=== PATIENT | female | born 1950 | race Caucasian/White ===

== ENCOUNTER 2017-03-10 14:05 | Emergency (ER) | payer MEDICARE | END 2017-03-10 14:46 | disposition left against medical advice (07) | LOC: ER 14:05 | DX: Z53.20 Procedure and treatment not carried out because of patient's decision for unspecified reasons (principal) ==

== ENCOUNTER 2017-07-10 17:39 | Emergency (ER) | payer MEDICARE ==
[2017-07-10 18:23] LABS: INFLUENZA A NEGATIVE (NEGATIVE); INFLUENZA B NEGATIVE (NEGATIVE)
[2017-07-10] MEDS ORDERED: ACETAMINOPHEN 500 MG TABLET PO ONE (19:01)
--- NOTE | 2017-07-10 19:05 | Emergency Department Record ---
History of Present Illness - General Chief Complaint: Cough Stated Complaint: COUGH Time Seen by Provider: 07/10/17 18:51 Source: Patient Mode of Arrival: Ambulatory Limitations: No limitations - History of Present Illness Initial Comments: pt has been sick for 4 days w prod yellow cough, fevers, chills and sweats, nausea ,vomiting and diarrhea MD Complaint: Cough, Fever, Nasal congestion, Rhinorrhea, Sore throat Onset/Timin -: Days(s) Severity: Mild Improves With: Nothing Worsens With: Nothing Associated Symptoms: Chills, Cough, Fever, Hoarseness, Nasal congestion, Nausea , Rhinorrhea, Night sweats, Sore throat, Vomiting Treatments Prior to Arrival: None - Related Data Previous Rx's Medication Instructions Recorded Azithromycin [Zithromax] 250 mg PO DAILY #4 tab 07/10/17 Allergies Allergy/AdvReac Type Severity Reaction Status Date / Time morphine Allergy DIFFICULTY Verified 07/10/17 17:56 BREATHING Travel Screening - Travel/Exposure Within Last 30 Days Have you traveled within the last 30 days?: No Review of Systems Reviewed: No additional complaints except as noted below Constitutional: Reports: As per HPI. Denies: Chills, Fever, Malaise, Night sweats, Weakness, Weight change Eyes: Reports: As per HPI. Denies: Eye discharge, Eye pain, Photophobia, Vision change ENT: Reports: As per HPI. Denies: Congestion, Dental pain, Ear pain, Epistaxis , Hearing loss, Throat pain Respiratory: Reports: As per HPI. Denies: Cough, Dyspnea, Hemoptysis, Stridor, Wheezes Cardiovascular: Reports: As per HPI. Denies: Arrhythmia, Chest pain, Dyspnea on exertion, Edema, Murmurs, Orthopnea, Palpitations, Paroxysmal nocturnal dyspnea, Rheumatic Fever, Syncope Endocrine: Reports: As per HPI. Denies: Fatigue, Heat or cold intolerance, Polydipsia, Polyuria Gastrointestinal: Reports: As per HPI. Denies: Abdominal pain, Constipation, Diarrhea, Hematemesis, Hematochezia, Melena, Nausea, Vomiting Genitourinary: Reports: As per HPI. Denies: Abnormal menses, Discharge, Dyspareunia, Dysuria, Frequency, Hematuria, Incontinence, Retention, Urgency Musculoskeletal: Reports: As per HPI. Denies: Arthralgia, Back pain, Gout, Joint swelling, Myalgia, Neck pain Skin: Reports: As per HPI. Denies: Bruising, Change in color, Change in hair/ nails, Lesions, Pruritus, Rash Neurological: Reports: As per HPI. Denies: Abnormal gait, Confusion, Headache, Numbness, Paresthesias, Seizure, Tingling, Tremors, Vertigo, Weakness Psychiatric: Reports: As per HPI. Denies: Anxiety, Auditory hallucinations, Depression, Homicidal thoughts, Suicidal thoughts, Visual hallucinations Hematological/Lymphatic: Reports: As per HPI. Denies: Anemia, Blood Clots, Easy bleeding, Easy bruising, Swollen glands Past Medical History - SOCIAL HISTORY Smoking Status: Current every day smoker Alcohol Use: None Drug Use: None - RESPIRATORY Hx Respiratory Disorders: Yes Hx COPD: Yes - CARDIOVASCULAR Hx Cardio Disorders: Yes Hx Cardiac Cath: Yes Comment:: bradycardia, needs pacemaker - NEURO Hx Neuro Disorders: Yes Hx Headaches: Yes Hx of Migraines: Yes (last one 09/2015) - GI Hx GI Disorders: Yes Hx Abdominal Pain: Yes Hx Diverticulitis: Yes Hx Reflux: Yes Hx Hiatal Hernia: Yes Hx Nausea/Vomiting: Yes Hx of Polyps: Yes Comment:: c/o constipation - Hx Genitourinary Disorders: No Hx Kidney Stones: Yes - ENDOCRINE Hx Endocrine Disorders: Yes Hx Thyroid Disease: Yes - MUSCULOSKELETAL Hx Musculoskeletal Disorders: Yes Hx Arthritis: Yes Hx Back Injury: Yes - PSYCH Hx Psych Problems: No - HEMATOLOGY/ONCOLOGY Hx Hematology/Oncology Disorders: Yes Hx Blood Transfusions: Yes Hx Blood Transfusion Reaction: No Family Medical History Any Significant Family History?: Yes Hx Diabetes: Grandparents Hx Heart Disease: Father, Mother, Brother/Sister Hx HTN: Mother, Brother/Sister Hx Seizures: Brother/Sister Physical Exam - General General Appearance: Alert, Oriented x3, Cooperative, Mild distress - Head Head exam: Normal inspection - Eye Eye exam: Normal appearance, PERRL, Conjunctival injection, EOMI Pupils: Normal accommodation - ENT ENT exam: Normal exam, Mucous membranes moist, Normal external ear exam, Normal orophraynx, TM's normal bilaterally Ear exam: Normal external inspection. negative: External canal tenderness Nasal Exam: Normal inspection. negative: Discharge, Sinus tenderness Mouth exam: Normal external inspection, Tongue normal Teeth exam: Normal inspection. negative: Dental caries Throat exam: Normal inspection. negative: Tonsillar erythema, Tonsillar exudate - Neck Neck exam: Normal inspection, Full ROM. negative: Tenderness - Respiratory Respiratory exam: Normal lung sounds bilaterally. negative: Respiratory distress - Cardiovascular Cardiovascular Exam: Regular rate, Normal rhythm, Normal heart sounds - GI/Abdominal GI/Abdominal exam: Soft, Normal bowel sounds. negative: Tenderness - Rectal Rectal exam: Deferred - exam: Deferred - Extremities Extremities exam: Normal inspection, Full ROM, Normal capillary refill. negative: Tenderness - Back Back exam: Reports: Normal inspection, Full ROM. Denies: Muscle spasm, Rash noted, Tenderness - Neurological Neurological exam: Alert, CN II-XII intact, Normal gait, Oriented X3 - Psychiatric Psychiatric exam: Normal affect, Normal mood - Skin Skin exam: Dry, Intact, Normal color, Warm Course Vital Signs 07/10/17 17:53 Temperature 98.6 F Pulse Rate 68 Respiratory 20 Rate Blood Pressure 141/91 Pulse Ox 96 Medical Decision Making - Lab Data Result diagrams: 07/10/17 19:07 07/10/17 19:07 Lab Results 07/10/17 07/10/17 Range/Units 18:00 18:00 Influenza Type A Ag Negative (NEGATIVE) Influenza Type B Ag Negative (NEGATIVE) Group A Strep Screen Negative (NEGATIVE) Disposition Disposition: Discharge Clinical Impression: Bronchitis Disposition: Home, Self-Care Condition: (1) Good Instructions: Acute Bronchitis (ED) Additional Instructions: follow up with family doctor. return sooner if worse. push fluids. tylenol or motrin as needed. nyquil at night to help . Prescriptions: Azithromycin [Zithromax] 250 mg PO DAILY #4 tab Forms: Patient Portal Access Quality - Quality Measures Quality Measures: N/A - Blood Pressure Screening Does Patient Have Any of the Following: No Blood Pressure Classification: Hypertensive Reading Systolic Measurement: 141 Diastolic Measurement: 91 Screening for High Blood Pressure: < Pre-Hypertensive BP, F/U Documented > [ G8950] Pre-Hypertensive Follow-up Interventions: Follow-up with rescreen every year.
[2017-07-10 19:13] LABS: BASO % 0.2 % (0-6); EOS % 0.4 % (0-6); GRAN % 70.4 % (47-80); HEMATOCRIT 39.6 % (35.0-47.0); HEMOGLOBIN 12.9 gm/dl (11.6-16.0); LYMPH % 20.3 % (16-45); MEAN CELL VOLUME 96.4 fl (81-97); MEAN CORPUSCULAR HEMOGLOBIN 31.4 pg (27-33); MEAN CORPUSCULAR HGB CONC 32.6 g/dl (32-36); MEAN PLATELET VOLUME 9.7 fl (7.4-10.4); MONO % 8.7 % (0-9); PLATELET COUNT 217 K/uL (130-400); RED BLOOD COUNT 4.11 M/uL (3.80-5.40); RED CELL DISTRIBUTION WIDTH 13.4 % (11.5-14.5); WHITE BLOOD COUNT W/O DIFF 4.6 K/uL (4.2-12.2)
[2017-07-10 19:28] LABS: BLOOD UREA NITROGEN 15 mg/dL (8-23); CREATININE 0.7 mg/dL (0.5-0.9); EST GLOMERULAR FILTRATION RATE > 60 mL/min
[2017-07-10 19:30] LABS: GLUCOSE,RANDOM 101 mg/dL (74-109)
[2017-07-10] MEDS ORDERED: AZITHROMYCIN 500 MG TABLET PO ONE (20:19)
--- NOTE | 2017-07-11 08:45 | RADIOLOGY REPORT ---
EXAM: CHEST 2 VIEWS HISTORY: COUGH AND FEVER. TECHNIQUE: Chest, two-view. COMPARISON: 02/01/15 FINDINGS: The heart is not enlarged. Lungs and pleural spaces are clear. IMPRESSION: NO ACUTE CARDIOPULMONARY ABNORMALITY. JOB NUMBER: [id number] MTDD
== END 2017-07-10 20:34 | disposition home or self-care (01) ==
LOC: ER 17:39
DX: J20.9 Acute bronchitis, unspecified (principal); R11.2 Nausea with vomiting, unspecified; R19.7 Diarrhea, unspecified; F17.210 Nicotine dependence, cigarettes, uncomplicated
CPT/HCPCS: 71020; 80048; 85025; 87400; 87880; 99283; 99284

== ENCOUNTER 2017-07-25 19:51 | Emergency (ER) | payer MEDICARE ==
--- NOTE | 2017-07-25 20:13 | Emergency Department Record ---
History of Present Illness - General Chief Complaint: Chest Pain Stated Complaint: CHEST PAIN/JULIO C Time Seen by Provider: 07/25/17 20:07 Source: Patient Mode of Arrival: Ambulatory Limitations: No limitations - History of Present Illness Initial Comments: 66 yo female presents to ED for evaluation of left-sided chest pain symptoms that began last night, radiating into her neck with any swallowing of movement of the neck on examination. Patient reports undergoing pacemaker placement 2 days ago, denies fevers, chills, or cough symptoms. Patient reports pacemaker was placed for intermittent bradycardia. MD Complaint: Chest pain Onset/Timin -: Days(s) Onset: During rest Pain Location: Substernal Pain Radiation: RUE, Jaw/teeth Severity scale (1-10): 10 Quality: Heaviness Consistency: Intermittent Improves With: Nothing Worsens With: Movement Context: Recent surgery Anginal Symptoms: Diaphoresis, Nausea - Related Data On Oral Contraceptives: No Home Medications Medication Instructions Recorded Confirmed Last Taken Estrogens, Conjugated [Premarin] 0.625 mg PO DAILY 07/25/17 07/25/17 Unknown Allergies Allergy/AdvReac Type Severity Reaction Status Date / Time morphine Allergy DIFFICULTY Verified 07/10/17 17:56 BREATHING Travel Screening - Travel/Exposure Within Last 30 Days Have you traveled within the last 30 days?: No - Travel Symptoms Symptom Screening: None Review of Systems Constitutional: Denies: Chills, Fever, Malaise, Night sweats Eyes: Denies: Eye discharge, Eye pain ENT: Denies: Congestion, Ear pain, Epistaxis Respiratory: Denies: Cough, Dyspnea Cardiovascular: Reports: Chest pain. Denies: Dyspnea on exertion Endocrine: Denies: Fatigue, Heat or cold intolerance Gastrointestinal: Denies: Abdominal pain, Nausea, Vomiting Genitourinary: Denies: Incontinence, Retention Musculoskeletal: Reports: Neck pain. Denies: Arthralgia, Back pain Skin: Denies: Bruising, Change in color Neurological: Denies: Abnormal gait, Confusion, Seizure Psychiatric: Denies: Anxiety Hematological/Lymphatic: Denies: Anemia, Blood Clots Past Medical History - SOCIAL HISTORY Smoking Status: Current every day smoker - RESPIRATORY Hx Respiratory Disorders: Yes Hx COPD: Yes - CARDIOVASCULAR Hx Cardio Disorders: Yes Hx Cardiac Cath: Yes Hx Pacemaker/Defib: Yes (Pacer for slow heart rate.) - NEURO Hx Neuro Disorders: Yes Hx Headaches: Yes Hx of Migraines: Yes (last one 09/2015) - GI Hx GI Disorders: Yes Hx Abdominal Pain: Yes Hx Diverticulitis: Yes Hx Reflux: Yes Hx Hiatal Hernia: Yes Hx Nausea/Vomiting: Yes Hx of Polyps: Yes Comment:: c/o constipation - Hx Genitourinary Disorders: No Hx Kidney Stones: Yes - ENDOCRINE Hx Endocrine Disorders: Yes Hx Thyroid Disease: Yes - MUSCULOSKELETAL Hx Musculoskeletal Disorders: Yes Hx Arthritis: Yes Hx Back Injury: Yes - PSYCH Hx Psych Problems: No - HEMATOLOGY/ONCOLOGY Hx Hematology/Oncology Disorders: Yes Hx Blood Transfusions: Yes Hx Blood Transfusion Reaction: No Family Medical History Any Significant Family History?: Yes Hx Diabetes: Grandparents Hx Heart Disease: Father, Mother, Brother/Sister Hx HTN: Mother, Brother/Sister Hx Seizures: Brother/Sister Physical Exam - General General Appearance: Alert, Oriented x3, Cooperative, Mild distress Limitations: No limitations - Head Head exam: Atraumatic, Normocephalic, Normal inspection Head exam detail: negative: Abrasion, Contusion, Jacobo's sign, General tenderness, Hematoma, Laceration - Eye Eye exam: Normal appearance. negative: Conjunctival injection, Periorbital swelling, Periorbital tenderness, Scleral icterus - ENT Ear exam: negative: Auricular hematoma, Auricular trauma Nasal Exam: negative: Active bleeding, Discharge, Dried blood, Foreign body Mouth exam: negative: Drooling, Laceration, Muffled voice, Tongue elevation - Neck Neck exam: Normal inspection. negative: Meningismus, Tenderness - Respiratory Respiratory exam: Normal lung sounds bilaterally, Other (Pacemaker surgical site is well appearing on examination). negative: Rales, Respiratory distress, Rhonchi, Stridor - Cardiovascular Cardiovascular Exam: Regular rate, Normal rhythm, Normal heart sounds - GI/Abdominal GI/Abdominal exam: Soft. negative: Rebound, Rigid, Tenderness - Rectal Rectal exam: Deferred - exam: Deferred - Extremities Extremities exam: Normal inspection. negative: Calf tenderness, Pedal edema, Tenderness - Back Back exam: Denies: CVA tenderness (R), CVA tenderness (L) - Neurological Neurological exam: Alert, Normal gait, Oriented X3 - Psychiatric Psychiatric exam: Normal affect, Normal mood - Skin Skin exam: Normal color. negative: Abrasion Type of lesion: negative: abrasion Course Vital Signs 07/25/17 07/25/17 19:55 20:01 Temperature 97.4 F L Pulse Rate 80 Pulse Rate [ 80 Pulse Ox Probe] Respiratory 24 24 Rate Blood Pressure 116/78 Blood Pressure 116/78 [Right Arm] Pulse Ox 97 97 - Reevaluation(s) Reevaluation #1: 07/25/17 20:09 EKG: NSR 79 Normal axis, normal intervals No acute ST-T wave changes No significant change from 03/09/17 Reevaluation #2: 07/25/17 20:48 Labs reviewed and are grossly unremarkable for an acute process. Reevaluation #3: 07/25/17 21:[address], updated on all results thus far, CT interpretation pending. Reevaluation #4: 07/25/17 22:18 CTA Chest: Small pericardial effusion No PE No other acute cardiac process Case was discussed with Dr. Otto, will transfer for further evaluation and admission. 07/25/17 22:25 Case was discussed with Dr. Gillespie at [facility], will accept transfer for evaluation. Medical Decision Making - Lab Data Result diagrams: 07/25/17 20:10 07/25/17 20:10 Disposition Disposition: Transfer Clinical Impression: Post-op pain Chest pain Qualifiers: Chest pain type: unspecified Qualified Code(s): R07.9 - Chest pain, unspecified Disposition: Home, Self-Care Transfer To: [facility] Reason For Transfer: Chest pain following pacemaker placment Accepting Physician: Jose Miguel Otto Time Discussed w/Accepting Physician: 22:25 Condition: (2) Stable Forms: Patient Portal Access Time of Disposition: 22:25 Quality - Quality Measures Quality Measures: N/A - Blood Pressure Screening Does Patient Have Any of the Following: No Blood Pressure Classification: Normal BP Reading Systolic Measurement: 116 Diastolic Measurement: 78 Screening for High Blood Pressure: < Normal BP, F/U Not Required > [G8783]
[2017-07-25 20:16] LABS: BASO % 0.2 % (0-6); EOS % 0.5 % (0-6); GRAN % 78.2 % (47-80); HEMATOCRIT 38.5 % (35.0-47.0); HEMOGLOBIN 12.2 gm/dl (11.6-16.0); LYMPH % 13.7 % (16-45); MEAN CELL VOLUME 98.5 fl (81-97); MEAN CORPUSCULAR HEMOGLOBIN 31.2 pg (27-33); MEAN CORPUSCULAR HGB CONC 31.7 g/dl (32-36); MEAN PLATELET VOLUME 9.6 fl (7.4-10.4); MONO % 7.4 % (0-9); PLATELET COUNT 290 K/uL (130-400); RED BLOOD COUNT 3.91 M/uL (3.80-5.40); RED CELL DISTRIBUTION WIDTH 13.8 % (11.5-14.5); WHITE BLOOD COUNT W/O DIFF 11.9 K/uL (4.2-12.2)
[2017-07-25 20:25] LABS: BLOOD UREA NITROGEN 17 mg/dL (8-23); CREATININE 0.7 mg/dL (0.5-0.9); EST GLOMERULAR FILTRATION RATE > 60 mL/min
[2017-07-25 20:26] LABS: TOTAL PROTEIN 7.2 g/dL (6.6-8.7)
[2017-07-25 20:28] LABS: GLUCOSE,RANDOM 127 mg/dL (74-109)
[2017-07-25] MEDS ORDERED: ASPIRIN 81 MG CHEWABLE TABLET PO ONE (20:30)
[2017-07-25] MEDS ORDERED: HYDROMORPHONE HCL 1 MG/ML SYRINGE IVP ONE (20:30)
[2017-07-25 20:31] LABS: ALB/GLOB RATIO 1.4 (1.1-1.8); ALBUMIN 4.2 g/dL (4.0-5.0); ALKALINE PHOSPHATASE 87 U/L (35-104); ALT/SGPT 15 U/L (<33); AST/SGOT 26 U/L (10.0-35.0)
[2017-07-25 20:50] LABS: INR 0.97; PROTHROMBIN TIME (PATIENT) 10.5 SECONDS (9.5-12.1)
[2017-07-25] MEDS ORDERED: ONDANSETRON HCL IV 4 MG/2 ML VIAL IVP ONE (21:01)
[2017-07-25] MEDS ORDERED: LORAZEPAM 0.5 MG TABLET PO ONE (22:32)
[2017-07-25] MEDS ORDERED: 0.9 % SODIUM CHLORIDE 1000ML 500 ML IV SCH (23:00)
--- NOTE | 2017-07-26 10:37 | CT ANGIOGRAM REPORT ---
EXAM: CT ANGIOGRAM OF THE CHEST WITH POST PROCESSING HISTORY: CHEST PAIN AND DIFFICULTY BREATHING. NECK PAIN. TECHNIQUE: Standard CT angiography of the chest was performed with post processing following the bolus administration of 90 ml of Omnipaque 350. Additional coronal and sagittal maximum intensity projection reformatted images were performed on an independent workstation under concurrent supervision. Comparison: Previous abdominal CT scan dated 03/11/17. FINDINGS: There is a small pericardial effusion measuring 7 mm in thickness anteriorly. This is new from the previous examination. Pacemaker leads are present. The aorta is normal in caliber. There is no dissection. The pulmonary arterial tree is normal. There is no pulmonary embolus. There is no mediastinal or hilar lymphadenopathy. Dependent atelectasis is present within both lungs. A few noncalcified nodules are present within both lungs. The largest is located within the right middle lobe and measures 9 x 7 mm. There are no acute pulmonary infiltrates or effusions. The chest wall and axillary regions appear normal. Bilateral breast implants are present. The osseous structures appear intact. The upper abdomen is unremarkable. IMPRESSION: 1. NO EVIDENCE FOR PULMONARY EMBOLUS OR OTHER ACUTE CARDIOPULMONARY PROCESS. 2. SMALL PERICARDIAL EFFUSION. 3. NONCALCIFIED NODULES WITHIN BOTH LUNGS. THE LARGEST IS LOCATED WITHIN THE RIGHT MIDDLE LOBE AND MEASURES 9 X 7 MM. A FOLLOW-UP CHEST CT IS RECOMMENDED IN THREE MONTHS TO CONFIRM STABILITY. 4. ADDITIONAL CHRONIC FINDINGS ABOVE. JOB NUMBER: [id number] MTDD
== END 2017-07-25 23:29 | disposition home or self-care (01) ==
LOC: ER 19:51
DX: G89.18 Other acute postprocedural pain (principal); R07.2 Precordial pain; M54.2 Cervicalgia; R11.0 Nausea; R61 Generalized hyperhidrosis; J44.9 Chronic obstructive pulmonary disease, unspecified; F17.210 Nicotine dependence, cigarettes, uncomplicated; Z95.0 Presence of cardiac pacemaker
CPT/HCPCS: 99285 ×2; 96374; 96375; 85025; 85610; 80053; 84484; 71275; 93005; 93010; Q9967; J2405; J1170; J7030

== ENCOUNTER 2017-08-12 12:43 | Emergency (ER) | payer MEDICARE ==
--- NOTE | 2017-08-12 13:20 | Emergency Department Record ---
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 she was put in icu. she was better but this week she has been lightheaded w palpitations and syncope x3. dr saxena told her to come to the ed. Complaint: Dizziness, Lightheadedness, Near syncope Onset/Timin -: Week(s) Timing: Unsure Description: Lightheadedness, Near-syncope, Off-balance, Other History of Same: Yes History of Trauma: Yes Improves With: Nothing Worsens With: Nothing Associated Symptoms: Shortness of breath, Syncope - Taylor Coma Scale Eye Response: (4) Open spontaneously Motor Response: (6) Obeys commands Verbal Response: (5) Oriented [place] Total: 15 - Symptoms of Stroke Symptoms of stroke: Dizziness - Related Data Home Medications Medication Instructions Recorded Confirmed Last Taken Colchicine 0.6 mg PO Q12H 08/12/17 08/12/17 08/12/17 Metoprolol Tartrate 25 mg PO BID 08/12/17 08/12/17 08/12/17 Tramadol HCl [Ultram] 50 mg PO BID 08/12/17 08/12/17 Unknown Allergies Allergy/AdvReac Type Severity Reaction Status Date / Time morphine Allergy DIFFICULTY Verified 08/12/17 13:01 BREATHING Travel Screening - Travel/Exposure Within Last 30 Days Have you traveled within the last 30 days?: No - Travel/Exposure Within Last Year Have you traveled outside the [place] in the last year?: No - Additonal Travel Details Have you been exposed to anyone with a communicable illness?: No - Travel Symptoms Symptom Screening: None Review of Systems Reviewed: No additional complaints except as noted below Constitutional: Reports: As per HPI, Weakness. Denies: Chills, Fever, Malaise, Night sweats, Weight change Eyes: Reports: As per HPI. Denies: Eye discharge, Eye pain, Photophobia, Vision change ENT: Reports: As per HPI. Denies: Congestion, Dental pain, Ear pain, Epistaxis , Hearing loss, Throat pain Respiratory: Reports: As per HPI. Denies: Cough, Dyspnea, Hemoptysis, Stridor, Wheezes Cardiovascular: Reports: As per HPI, Chest pain, Dyspnea on exertion, Palpitations, Syncope. Denies: Arrhythmia, Edema, Murmurs, Orthopnea, Paroxysmal nocturnal dyspnea, Rheumatic Fever Endocrine: Reports: As per HPI, Fatigue. Denies: Heat or cold intolerance, Polydipsia, Polyuria Gastrointestinal: Reports: As per HPI. Denies: Abdominal pain, Constipation, Diarrhea, Hematemesis, Hematochezia, Melena, Nausea, Vomiting Genitourinary: Reports: As per HPI. Denies: Abnormal menses, Discharge, Dyspareunia, Dysuria, Frequency, Hematuria, Incontinence, Retention, Urgency Musculoskeletal: Reports: As per HPI. Denies: Arthralgia, Back pain, Gout, Joint swelling, Myalgia, Neck pain Skin: Reports: As per HPI. Denies: Bruising, Change in color, Change in hair/ nails, Lesions, Pruritus, Rash Neurological: Reports: As per HPI. Denies: Abnormal gait, Confusion, Headache, Numbness, Paresthesias, Seizure, Tingling, Tremors, Vertigo, Weakness Psychiatric: Reports: As per HPI. Denies: Anxiety, Auditory hallucinations, Depression, Homicidal thoughts, Suicidal thoughts, Visual hallucinations Hematological/Lymphatic: Reports: As per HPI. Denies: Anemia, Blood Clots, Easy bleeding, Easy bruising, Swollen glands Past Medical History - SOCIAL HISTORY Smoking Status: Current every day smoker Alcohol Use: None Drug Use: None - RESPIRATORY Hx Respiratory Disorders: Yes Hx COPD: Yes - CARDIOVASCULAR Hx Cardio Disorders: Yes Hx Cardiac Cath: Yes Hx Pacemaker/Defib: Yes (Pacer for slow heart rate.) - NEURO Hx Neuro Disorders: Yes Hx Headaches: Yes Hx of Migraines: Yes (last one 09/2015) - GI Hx GI Disorders: Yes Hx Abdominal Pain: Yes Hx Diverticulitis: Yes Hx Reflux: Yes Hx Hiatal Hernia: Yes Hx Nausea/Vomiting: Yes Hx of Polyps: Yes Comment:: c/o constipation - Hx Genitourinary Disorders: No Hx Kidney Stones: Yes - ENDOCRINE Hx Endocrine Disorders: Yes Hx Thyroid Disease: Yes - MUSCULOSKELETAL Hx Musculoskeletal Disorders: Yes Hx Arthritis: Yes Hx Back Injury: Yes - PSYCH Hx Psych Problems: No - HEMATOLOGY/ONCOLOGY Hx Hematology/Oncology Disorders: Yes Hx Blood Transfusions: Yes Hx Blood Transfusion Reaction: No Family Medical History Any Significant Family History?: No Hx Diabetes: Grandparents Hx Heart Disease: Father, Mother, Brother/Sister Hx HTN: Mother, Brother/Sister Hx Seizures: Brother/Sister Physical Exam - General General Appearance: Alert, Oriented x3, Cooperative, Mild distress - Head Head exam: Normal inspection - Eye Eye exam: Normal appearance, PERRL, EOMI Pupils: Normal accommodation - ENT ENT exam: Normal exam, Mucous membranes moist, Normal external ear exam, Normal orophraynx Ear exam: Normal external inspection. negative: External canal tenderness Nasal Exam: Normal inspection. negative: Discharge, Sinus tenderness Mouth exam: Normal external inspection, Tongue normal Teeth exam: Normal inspection. negative: Dental caries Throat exam: Normal inspection. negative: Tonsillar erythema, Tonsillar exudate - Neck Neck exam: Normal inspection, Full ROM. negative: Tenderness - Respiratory Respiratory exam: Normal lung sounds bilaterally, Other (crackles l base). negative: Respiratory distress - Cardiovascular Cardiovascular Exam: Regular rate, Normal rhythm, Normal heart sounds - GI/Abdominal GI/Abdominal exam: Soft, Normal bowel sounds. negative: Tenderness - Rectal Rectal exam: Deferred - exam: Deferred - Extremities Extremities exam: Normal inspection, Full ROM, Normal capillary refill. negative: Tenderness - Back Back exam: Reports: Normal inspection, Full ROM. Denies: Muscle spasm, Rash noted, Tenderness - Neurological Neurological exam: Alert, Normal gait, Oriented X3, Reflexes normal - Psychiatric Psychiatric exam: Normal affect, Normal mood - Skin Skin exam: Dry, Intact, Normal color, Warm Course Vital Signs 08/12/17 12:49 Temperature 98.3 F Pulse Rate 65 Respiratory 16 Rate Blood Pressure 118/67 Pulse Ox 96 Medical Decision Making - Lab Data Result diagrams: 08/12/17 13:07 08/12/17 13:07 Disposition Disposition: Transfer Clinical Impression: Syncope Qualifiers: Syncope type: unspecified Qualified Code(s): R55 - Syncope and collapse Chest pain Qualifiers: Chest pain type: unspecified Qualified Code(s): R07.9 - Chest pain, unspecified Disposition: Acute Care Hospital Transfer Transfer To: [facility] Reason For Transfer: needs vice president financial and echo Accepting Physician: dr saxena Time Discussed w/Accepting Physician: 14:27 Forms: Patient Portal Access Quality - Quality Measures Quality Measures: N/A - Blood Pressure Screening Does Patient Have Any of the Following: No Blood Pressure Classification: Normal BP Reading Systolic Measurement: 118 Diastolic Measurement: 67 Screening for High Blood Pressure: < Normal BP, F/U Not Required > [G8783]
[2017-08-12 13:21] LABS: BASO % 0.2 % (0-6); EOS % 0.7 % (0-6); GRAN % 78.9 % (47-80); LYMPH % 12.6 % (16-45); MEAN CELL VOLUME 96.6 fl (81-97); MEAN CORPUSCULAR HGB CONC 32.4 g/dl (32-36); MEAN PLATELET VOLUME 10.2 fl (7.4-10.4); MONO % 7.6 % (0-9); PLATELET COUNT 345 K/uL (130-400); RED BLOOD COUNT 3.52 M/uL (3.80-5.40); RED CELL DISTRIBUTION WIDTH 13.9 % (11.5-14.5); WHITE BLOOD COUNT W/O DIFF 10.3 K/uL (4.2-12.2)
[2017-08-12 13:29] LABS: BLOOD UREA NITROGEN 15 mg/dL (8-23); CREATININE 0.6 mg/dL (0.5-0.9); EST GLOMERULAR FILTRATION RATE > 60 mL/min; MEAN CORPUSCULAR HEMOGLOBIN 31.2 pg (27-33)
[2017-08-12 13:30] LABS: TOTAL PROTEIN 7.3 g/dL (6.6-8.7)
[2017-08-12 13:32] LABS: GLUCOSE,RANDOM 113 mg/dL (74-109)
[2017-08-12 13:35] LABS: ALB/GLOB RATIO 1.2 (1.1-1.8); ALKALINE PHOSPHATASE 93 U/L (35-104); ALT/SGPT 10 U/L (<33); AST/SGOT 19 U/L (10.0-35.0); CREATINE PHOSPHOKINASE 57 U/L (26-192)
[2017-08-12 13:38] LABS: CKMB < 1.0 ng/mL (<3.77)
[2017-08-12] MEDS ORDERED: LORAZEPAM 2 MG/ML VIAL IV ONE (14:23)
--- NOTE | 2017-08-13 07:20 | RADIOLOGY REPORT ---
EXAM: PORTABLE CHEST HISTORY: CHEST PAIN. TECHNIQUE: A portable view of the chest was obtained. Comparison: Prior chest x-ray from 07/10/17. FINDINGS: The heart size is stable. Left sided pacing device. Mild elevation of the left hemidiaphragm. Osteopenia. The lungs are clear. No pneumothorax. IMPRESSION: NO ACUTE CARDIOPULMONARY PROCESS. JOB NUMBER: [id number] MTDD
== END 2017-08-12 15:34 | disposition short-term general hospital (02) ==
LOC: ER 12:43
DX: R55 Syncope and collapse (principal); R07.9 Chest pain, unspecified; R06.02 Shortness of breath; J44.9 Chronic obstructive pulmonary disease, unspecified; E11.9 Type 2 diabetes mellitus without complications; F17.210 Nicotine dependence, cigarettes, uncomplicated; Z95.0 Presence of cardiac pacemaker
CPT/HCPCS: 99285 ×2; 96374; 82550; 85025; 82553; 80053; 84484; 83880; 71045; 93005; 93010; J2060

== ENCOUNTER 2017-10-07 17:05 | Emergency (ER) | payer MEDICARE ==
--- NOTE | 2017-10-07 17:15 | Emergency Department Record ---
History of Present Illness - General Stated Complaint: CHEST PAINS Time Seen by Provider: 10/07/17 17:07 Source: Patient, Family Mode of Arrival: Ambulatory Limitations: No limitations - History of Present Illness Initial Comments: 67 yo female presents with pain that started at 4:15pm when she was at the vet with her pets. She developed pain in the jaw, neck, LUE and then to the chest. She states the pain is a pressure and sharp sensation. No syncope. No shortness of breath. The discomfort is worse with moving or palpation of the left upper chest. She reports she had a pacemaker placed in July. She did develop an effusion at that time. She had symptomatic bradycardia. She reports no pain or symptoms since a August episode that lead to transfer to [facility] [place] as well. She has been seen twice in the ED for chest pain since her pacer. No positive troponins. CTA was negative for PE. Her mathematics education professor is Dr Fernández. The PCP is Dr Gonsalez. Complaint: Chest pain -: Hour(s) (1) Onset: Other (At the vet) Pain Location: Substernal, Left chest Pain Radiation: LUE, Neck, Jaw/teeth Severity: Moderate Quality: Other (Pressure) Consistency: Constant Improves With: Nothing Worsens With: Nothing Context: Recent illness, Recent surgery Treatments Prior to Arrival: None - Related Data Allergies Allergy/AdvReac Type Severity Reaction Status Date / Time morphine Allergy DIFFICULTY Verified 10/07/17 17:20 BREATHING Review of Systems Constitutional: Denies: Chills, Fever, Malaise, Weakness Eyes: Denies: Eye discharge ENT: Denies: Congestion, Dental pain, Ear pain, Epistaxis, Throat pain Respiratory: Denies: Cough, Dyspnea, Hemoptysis, Stridor, Wheezes Cardiovascular: Reports: Chest pain. Denies: Dyspnea on exertion, Palpitations , Syncope Endocrine: Denies: Fatigue Gastrointestinal: Denies: Abdominal pain, Diarrhea, Nausea, Vomiting Genitourinary: Denies: Dysuria, Urgency Musculoskeletal: Reports: Neck pain. Denies: Arthralgia, Back pain, Joint swelling, Myalgia Skin: Denies: Bruising, Change in color, Rash Neurological: Denies: Headache, Numbness, Weakness Psychiatric: Denies: Anxiety Hematological/Lymphatic: Denies: Blood Clots, Easy bleeding, Easy bruising, Swollen glands Past Medical History - SOCIAL HISTORY Smoking Status: Current every day smoker Drug Use: None - RESPIRATORY Hx Respiratory Disorders: Yes Hx COPD: Yes - CARDIOVASCULAR Hx Cardio Disorders: Yes Hx Cardiac Cath: Yes Hx Pacemaker/Defib: Yes (Pacer for slow heart rate.) - NEURO Hx Neuro Disorders: Yes Hx Headaches: Yes Hx of Migraines: Yes (last one 09/2015) - GI Hx GI Disorders: Yes Hx Abdominal Pain: Yes Hx Diverticulitis: Yes Hx Reflux: Yes Hx Hiatal Hernia: Yes Hx Nausea/Vomiting: Yes Hx of Polyps: Yes Comment:: c/o constipation - Hx Genitourinary Disorders: No Hx Kidney Stones: Yes - ENDOCRINE Hx Endocrine Disorders: Yes Hx Thyroid Disease: Yes - MUSCULOSKELETAL Hx Musculoskeletal Disorders: Yes Hx Arthritis: Yes Hx Back Injury: Yes - PSYCH Hx Psych Problems: No - HEMATOLOGY/ONCOLOGY Hx Hematology/Oncology Disorders: Yes Hx Blood Transfusions: Yes Hx Blood Transfusion Reaction: No Family Medical History Hx Diabetes: Grandparents Hx Heart Disease: Father, Mother, Brother/Sister Hx HTN: Mother, Brother/Sister Hx Seizures: Brother/Sister Physical Exam - General General Appearance: Alert, Oriented x3, Cooperative, No acute distress Limitations: No limitations - Head Head exam: Atraumatic, Normal inspection - Eye Eye exam: Normal appearance. negative: Conjunctival injection, Periorbital swelling, Scleral icterus - ENT ENT exam: Normal exam. negative: Mucous membranes moist Ear exam: Normal external inspection Nasal Exam: Normal inspection Mouth exam: Normal external inspection Teeth exam: Normal inspection Throat exam: Normal inspection - Neck Neck exam: Normal inspection, Full ROM. negative: Tenderness - Respiratory Respiratory exam: Normal lung sounds bilaterally, Chest wall tenderness ( tenderness in the left upper chest along the pacer incertion site, no swelling, warmth or redness). negative: Decreased breath sounds, Respiratory distress, Rhonchi, Stridor, Wheezes - Cardiovascular Cardiovascular Exam: Regular rate, Normal rhythm, Normal heart sounds Peripheral Pulses: 2+: Radial (R), Radial (L) - GI/Abdominal GI/Abdominal exam: Soft. negative: Distended, Guarding, Rebound, Tenderness - Rectal Rectal exam: Deferred - exam: Deferred - Extremities Extremities exam: Normal inspection, Full ROM, Normal capillary refill. negative: Calf tenderness, Pedal edema, Tenderness - Back Back exam: Reports: Normal inspection, Full ROM. Denies: CVA tenderness (R), CVA tenderness (L), Muscle spasm, Rash noted, Tenderness - Neurological Neurological exam: Alert, Normal gait, Oriented X3 - Psychiatric Psychiatric exam: Normal affect, Normal mood. negative: Agitated, Anxious - Skin Skin exam: Dry, Intact, Normal color, Warm Course - Reevaluation(s) Reevaluation #1: EKG 17:13 Atrial paced, rate 60, poor R wave progress, no ST changes, intervals normal, axis normal EKG 17:17 Atrial paced, rate 60, poor R wave progess, no ST changes, intervals normal, axis normal EMR reviewed form 07/25/17 and 08/12/17. The patient was seen for CP and transferred to [facility] [place] 10/07/17 17:37 10/07/17 17:48 The CBC was reviewed. No acute changes. 10/07/17 18:12 The CMP and Troponin are negative. 10/07/17 18:[address] Fernández at length. He is very familiar with the patient's case. He reports she had a heart cath in the last 3 months that demonstrated completely normal coronaries. She had a pacer lead that bleed causing a cardiac tamponade in July. When this healed she has had pain from pericarditis that was treated successfully with NSAIDS. He does not recommend stress testing given the normal coronaries, no changes on the EKG. He recommends NSAIDS, serial enzymes, if negative may follow up in the office. He recommended the patient could take her colchicine for 3 days then stop. The HR, BP, pulse ox do not suggest alternative serious diagnosis at this time. 10/07/17 18:48 10/07/17 18:54 Final CXR was read as no acute process. 10/07/17 19:06 Repeat cardiac enzymes are ordered for 9pm The case was signed out at the bedside to Dr Browne The patient is very comfortable with controlled pain BP 129/63, HR 62 Medical Decision Making - Lab Data Result diagrams: 10/07/17 17:15 10/07/17 17:15 Disposition Clinical Impression: Atypical chest pain Disposition: Against Medical Advice Condition: (2) Stable Instructions: Chest Pain (ED) Additional Instructions: Return or be seen at [facility] if the chest pain returns, any cough, fever, new concerns You may take your colchicine for the next three days then stop Call Dr Fernández for an appointment tomorrow. Forms: Patient Portal Access Quality - Quality Measures Quality Measures: N/A - Blood Pressure Screening Does Patient Have Any of the Following: Active Dx of HTN Blood Pressure Classification: Hypertensive Reading Systolic Measurement: 157 Diastolic Measurement: 75 Screening for High Blood Pressure: Patient Exclusion, Hx of HTN [G9744]
[2017-10-07] MEDS ORDERED: ASPIRIN 81 MG CHEWABLE TABLET PO ONE (17:26)
[2017-10-07] MEDS ORDERED: HYDROMORPHONE HCL 2 MG/ML VIAL IVP ONE (17:26)
[2017-10-07 17:39] LABS: BASO % 0.4 % (0-6); EOS % 1.4 % (0-6); GRAN % 51.6 % (47-80); HEMATOCRIT 43.1 % (35.0-47.0); HEMOGLOBIN 14.2 gm/dl (11.6-16.0); LYMPH % 38.3 % (16-45); MEAN CELL VOLUME 93.9 fl (81-97); MEAN CORPUSCULAR HEMOGLOBIN 30.9 pg (27-33); MEAN CORPUSCULAR HGB CONC 32.9 g/dl (32-36); MEAN PLATELET VOLUME 10.8 fl (7.4-10.4); MONO % 8.3 % (0-9); PLATELET COUNT 244 K/uL (130-400); RED BLOOD COUNT 4.59 M/uL (3.80-5.40); RED CELL DISTRIBUTION WIDTH 14.5 % (11.5-14.5); WHITE BLOOD COUNT W/O DIFF 8.1 K/uL (4.2-12.2)
[2017-10-07 17:51] LABS: PARTIAL THROMBOPLASTIN TIME 27.5 SECONDS (24.5-39.1); PROTHROMBIN TIME (PATIENT) 10.7 SECONDS (9.5-12.1)
[2017-10-07 17:52] LABS: BLOOD UREA NITROGEN 17 mg/dL (8-23); CREATININE 0.6 mg/dL (0.5-0.9); EST GLOMERULAR FILTRATION RATE > 60 mL/min
[2017-10-07 17:53] LABS: TOTAL PROTEIN 7.5 g/dL (6.6-8.7)
[2017-10-07 17:55] LABS: GLUCOSE,RANDOM 96 mg/dL (74-109)
[2017-10-07 17:58] LABS: ALB/GLOB RATIO 1.4 (1.1-1.8); ALBUMIN 4.4 g/dL (4.0-5.0); ALKALINE PHOSPHATASE 78 U/L (35-104); ALT/SGPT 11 U/L (<33); AST/SGOT 19 U/L (10.0-35.0)
[2017-10-07] MEDS ORDERED: KETOROLAC 30 MG/ML VIAL IVP ONE (18:22)
[2017-10-07] MEDS ORDERED: DIAZEPAM 5 MG TABLET PO ONE (18:22)
--- NOTE | 2017-10-07 21:43 | Emergency Department Record ---
History of Present Illness - General Chief Complaint: Chest Pain Stated Complaint: CHEST PAINS Time Seen by Provider: 10/07/17 17:07 Source: Patient, Family Mode of Arrival: Ambulatory Limitations: No limitations - History of Present Illness Onset/Timin -: Hour(s) (1) Onset: Other (At the vet) Pain Location: Substernal, Left chest Pain Radiation: LUE, Neck, Jaw/teeth Severity: Moderate Severity scale (1-10): 9 Quality: Other (Pressure) Consistency: Constant Improves With: Nothing Worsens With: Nothing Context: Recent illness, Recent surgery Treatments Prior to Arrival: None - Related Data Allergies Allergy/AdvReac Type Severity Reaction Status Date / Time morphine Allergy DIFFICULTY Verified 10/07/17 17:20 BREATHING Travel Screening - Travel/Exposure Within Last 30 Days Have you traveled within the last 30 days?: No - Travel/Exposure Within Last Year Have you traveled outside the [place] in the last year?: No - Additonal Travel Details Have you been exposed to anyone with a communicable illness?: No - Travel Symptoms Symptom Screening: None Review of Systems Constitutional: Denies: Chills, Fever, Malaise, Weakness Eyes: Denies: Eye discharge ENT: Denies: Congestion, Dental pain, Ear pain, Epistaxis, Throat pain Respiratory: Denies: Cough, Dyspnea, Hemoptysis, Stridor, Wheezes Cardiovascular: Reports: Chest pain. Denies: Dyspnea on exertion, Palpitations , Syncope Endocrine: Denies: Fatigue Gastrointestinal: Denies: Abdominal pain, Diarrhea, Nausea, Vomiting Genitourinary: Denies: Dysuria, Urgency Musculoskeletal: Reports: Neck pain. Denies: Arthralgia, Back pain, Joint swelling, Myalgia Skin: Denies: Bruising, Change in color, Rash Neurological: Denies: Headache, Numbness, Weakness Psychiatric: Denies: Anxiety Hematological/Lymphatic: Denies: Blood Clots, Easy bleeding, Easy bruising, Swollen glands Past Medical History - SOCIAL HISTORY Smoking Status: Current every day smoker Drug Use: None - RESPIRATORY Hx Respiratory Disorders: Yes Hx COPD: Yes - CARDIOVASCULAR Hx Cardio Disorders: Yes Hx Cardiac Cath: Yes Hx Pacemaker/Defib: Yes (Pacer for slow heart rate.) - NEURO Hx Neuro Disorders: Yes Hx Headaches: Yes Hx of Migraines: Yes (last one 09/2015) - GI Hx GI Disorders: Yes Hx Abdominal Pain: Yes Hx Diverticulitis: Yes Hx Reflux: Yes Hx Hiatal Hernia: Yes Hx Nausea/Vomiting: Yes Hx of Polyps: Yes Comment:: c/o constipation - Hx Genitourinary Disorders: No Hx Kidney Stones: Yes - ENDOCRINE Hx Endocrine Disorders: Yes Hx Thyroid Disease: Yes - MUSCULOSKELETAL Hx Musculoskeletal Disorders: Yes Hx Arthritis: Yes Hx Back Injury: Yes - PSYCH Hx Psych Problems: No - HEMATOLOGY/ONCOLOGY Hx Hematology/Oncology Disorders: Yes Hx Blood Transfusions: Yes Hx Blood Transfusion Reaction: No Family Medical History Hx Diabetes: Grandparents Hx Heart Disease: Father, Mother, Brother/Sister Hx HTN: Mother, Brother/Sister Hx Seizures: Brother/Sister Physical Exam - General Limitations: No limitations Course Vital Signs 10/07/17 10/07/17 10/07/17 17:25 19:09 19:30 Temperature 98.1 F Pulse Rate 60 Pulse Rate [ 61 61 Tight Cooper ] Respiratory 24 18 Rate Blood Pressure 157/75 Blood Pressure 129/68 109/68 [Right Arm] Pulse Ox 99 97 10/07/17 10/07/17 20:00 20:27 Temperature Pulse Rate Pulse Rate [ 61 61 Tight Cooper ] Respiratory Rate Blood Pressure Blood Pressure 118/64 116/70 [Right Arm] Pulse Ox - Reevaluation(s) Reevaluation #1: 10/07/17 1905 In room to perform shift change with the previous provider, patient is resting comfortably and denies needs at this time. Plan for repeat Troponin at 21:15. 10/07/17 21:57 Repeat Troponin is 0.024. I updated the patient on her result and that I would discuss her repeat Troponin with Dr. Fernández, however transfer to [facility] for further evaluation would likely be warranted. Patient reports that she absolutely will not agree to be transferred to [facility] as she reports a poor experience during her last hospitalization. I did discuss the benefit of transfer (exclude heart attack, worsening of her current cardiac condition, and cardiac evaluation) vs. the risk (missed heart attack, permanent impairment, or ). Patient verbalizes understanding of all risks and benefits, and continues to state that she dows not want to be transferred. Patient is awake, alert, and answers all questions appropriately. Based on my examination, she has the capacity t o make rational decisions and appears stable for discharge AMA. Will await Dr. Fernández's return call and attempt to arrange follow-up tomorrow in the office. Patient's was present for all discussions as well. Reevaluation #2: 10/07/17 23:05 Case was discussed with Dr. Fernández, he will contact the patient tomorrow for a follow-up appointment. I did contact the patient and let her know the plan of care by phone as well. Medical Decision Making - Lab Data Result diagrams: 10/07/17 17:15 10/07/17 17:15 Lab Results 10/07/17 10/07/17 10/07/17 Range/Units 17:15 17:15 17:15 WBC 8.1 (4.2-12.2) K/uL RBC 4.59 (3.80-5.40) M/uL Hgb 14.2 (11.6-16.0) gm/dl Hct 43.1 (35.0-47.0) % MCV 93.9 (81-97) fl MCH 30.9 (27-33) pg MCHC 32.9 (32-36) g/dl RDW 14.5 (11.5-14.5) % Plt Count 244 (130-400) K/uL MPV 10.8 H (7.4-10.4) fl Gran % 51.6 (47-80) % Lymphocytes % 38.3 (16-45) % Monocytes % 8.3 (0-9) % Eosinophils % 1.4 (0-6) % Basophils % 0.4 (0-6) % PT 10.7 (9.5-12.1) SECONDS INR 1.0 APTT 27.5 (24.5-39.1) SECONDS Sodium 142 (136-145) mmol/L Potassium 3.8 (3.4-4.5) mmol/L Chloride 102 (98-107) mmol/L Carbon Dioxide 26.0 (22-29) mmol/L Anion Gap 14.0 (7-16) BUN 17 (8-23) mg/dL Creatinine 0.6 (0.5-0.9) mg/dL Estimated GFR > 60 mL/min Random Glucose 96 (74-109) mg/dL Calcium 9.3 (8.8-10.2) mg/dL Total Bilirubin 0.30 (0.2-1.0) mg/dL AST 19 (10.0-35.0) U/L ALT 11 (<33) U/L Alkaline Phosphatase 78 (35-104) U/L Troponin T < 0.010 (0-0.010) ng/mL Total Protein 7.5 (6.6-8.7) g/dL Albumin 4.4 (4.0-5.0) g/dL Globulin 3.1 (1.4-4.8) gm/dL Albumin/Globulin Ratio 1.4 (1.1-1.8) Disposition Disposition: Discharge Clinical Impression: Atypical chest pain Disposition: Against Medical Advice Condition: (2) Stable Instructions: Chest Pain (ED) Additional Instructions: Return or be seen at [facility] if the chest pain returns, any cough, fever, new concerns You may take your colchicine for the next three days then stop Call Dr Fernández for an appointment tomorrow. Forms: Patient Portal Access Time of Disposition: 22:03 Quality - Quality Measures Quality Measures: N/A - Blood Pressure Screening Does Patient Have Any of the Following: Active Dx of HTN Blood Pressure Classification: Hypertensive Reading Systolic Measurement: 157 Diastolic Measurement: 75 Screening for High Blood Pressure: Patient Exclusion, Hx of HTN [G9744]
--- NOTE | 2017-10-08 10:26 | RADIOLOGY REPORT ---
EXAM: CHEST, TWO VIEWS HISTORY: DIFFICULTY IN BREATHING. TECHNIQUE: Frontal and lateral views of the chest were performed. FINDINGS: Left sided pacing device in place. The heart size is normal. The lung charl[place] are clear. No infiltrate or pleural effusion. Postop breast prostheses in place. IMPRESSION: NO ACUTE DISEASE PROCESS. JOB NUMBER: [id number] MTDD
== END 2017-10-07 22:29 | disposition left against medical advice (07) ==
LOC: ER 17:05
DX: R07.89 Other chest pain (principal); I10 Essential (primary) hypertension; J44.9 Chronic obstructive pulmonary disease, unspecified; F17.210 Nicotine dependence, cigarettes, uncomplicated; Z95.0 Presence of cardiac pacemaker
CPT/HCPCS: 99284 ×2; 96374; 96375; 85025; 85730; 85610; 80053; 84484; 71046; 93005; 93010; J3490; J1885; J1170

== ENCOUNTER 2017-12-07 10:21 | Emergency (ER) | payer MEDICARE ==
[2017-12-07 10:54] LABS: URINE APPEARANCE CLEAR; URINE BILIRUBIN NEGATIVE (NEGATIVE); URINE BLOOD NEGATIVE (NEGATIVE); URINE COLOR YELLOW; URINE GLUCOSE (UA) NEGATIVE (NEGATIVE); URINE KETONE TRACE (NEGATIVE); URINE LEUKOCYTE ESTERASE NEGATIVE (NEGATIVE); URINE NITRITE NEGATIVE (NEGATIVE); URINE PROTEIN NEGATIVE (NEGATIVE); URINE UROBILINOGEN 0.2 E.U./dL (0.20 - 1.00)
[2017-12-07] MEDS ORDERED: ONDANSETRON HCL IV 4 MG/2 ML VIAL IV ONE (11:01)
[2017-12-07] MEDS ORDERED: 0.9 % SODIUM CHLORIDE 1,000 ML BAG IV ONE (11:01)
[2017-12-07 11:27] LABS: BASO % 0.5 % (0-6); EOS % 1.5 % (0-6); GRAN % 63.5 % (47-80); HEMOGLOBIN 13.5 gm/dl (11.6-16.0); MEAN CELL VOLUME 93.6 fl (81-97); MEAN CORPUSCULAR HEMOGLOBIN 30.8 pg (27-33); MEAN CORPUSCULAR HGB CONC 32.9 g/dl (32-36); MEAN PLATELET VOLUME 9.9 fl (7.4-10.4); MONO % 9.5 % (0-9); PLATELET COUNT 258 K/uL (130-400); RED BLOOD COUNT 4.38 M/uL (3.80-5.40); RED CELL DISTRIBUTION WIDTH 15.1 % (11.5-14.5); WHITE BLOOD COUNT W/O DIFF 6.5 K/uL (4.2-12.2)
[2017-12-07 11:31] LABS: BLOOD UREA NITROGEN 15 mg/dL (8-23); CREATININE 0.6 mg/dL (0.5-0.9); EST GLOMERULAR FILTRATION RATE > 60 mL/min
[2017-12-07 11:33] LABS: GLUCOSE,RANDOM 102 mg/dL (74-109)
--- NOTE | 2017-12-07 11:34 | Emergency Department Record ---
History of Present Illness - General Chief Complaint: Back Pain/Injury Stated Complaint: BACK PAIN & NAUSEA Time Seen by Provider: 12/07/17 10:46 Source: Patient Mode of Arrival: Ambulatory Limitations: No limitations - History of Present Illness Initial Comments: pt has had l flank pain for the last 3 days that feels like her previous kidney stone.. she has frequency and urgency MD Complaint: Back pain Onset/Timin -: Days(s) Similar Symptoms Previously: Yes Severity: Mild Severity scale (1-10): 5 Quality: Aching Consistency: Constant Improves With: None Worsens With: None Associated Symptoms: Abdominal pain, Nausea/vomiting - Related Data Previous Rx's Medication Instructions Recorded Cyclobenzaprine HCl [Flexeril] 10 mg PO TID #14 tablet 12/07/17 Ibuprofen [Motrin 600Mg] 600 mg PO Q6H PRN #20 tablet 12/07/17 Ondansetron [Zofran Odt] 4 mg PO Q8H #10 tab.rapdis 12/07/17 Allergies Allergy/AdvReac Type Severity Reaction Status Date / Time morphine Allergy DIFFICULTY Verified 12/07/17 10:29 BREATHING Travel Screening - Travel/Exposure Within Last 30 Days Have you traveled within the last 30 days?: No Review of Systems Reviewed: No additional complaints except as noted below Constitutional: Reports: As per HPI. Denies: Chills, Fever, Malaise, Night sweats, Weakness, Weight change Eyes: Reports: As per HPI. Denies: Eye discharge, Eye pain, Photophobia, Vision change ENT: Reports: As per HPI. Denies: Congestion, Dental pain, Ear pain, Epistaxis , Hearing loss, Throat pain Respiratory: Reports: As per HPI. Denies: Cough, Dyspnea, Hemoptysis, Stridor, Wheezes Cardiovascular: Reports: As per HPI. Denies: Arrhythmia, Chest pain, Dyspnea on exertion, Edema, Murmurs, Orthopnea, Palpitations, Paroxysmal nocturnal dyspnea, Rheumatic Fever, Syncope Endocrine: Reports: As per HPI. Denies: Fatigue, Heat or cold intolerance, Polydipsia, Polyuria Gastrointestinal: Reports: As per HPI, Abdominal pain, Nausea. Denies: Constipation, Diarrhea, Hematemesis, Hematochezia, Melena, Vomiting Genitourinary: Reports: As per HPI. Denies: Abnormal menses, Discharge, Dyspareunia, Dysuria, Frequency, Hematuria, Incontinence, Retention, Urgency Musculoskeletal: Reports: As per HPI. Denies: Arthralgia, Back pain, Gout, Joint swelling, Myalgia, Neck pain Skin: Reports: As per HPI. Denies: Bruising, Change in color, Change in hair/ nails, Lesions, Pruritus, Rash Neurological: Reports: As per HPI. Denies: Abnormal gait, Confusion, Headache, Numbness, Paresthesias, Seizure, Tingling, Tremors, Vertigo, Weakness Psychiatric: Reports: As per HPI. Denies: Anxiety, Auditory hallucinations, Depression, Homicidal thoughts, Suicidal thoughts, Visual hallucinations Hematological/Lymphatic: Reports: As per HPI. Denies: Anemia, Blood Clots, Easy bleeding, Easy bruising, Swollen glands Past Medical History - SOCIAL HISTORY Smoking Status: Current every day smoker Alcohol Use: None Drug Use: None - RESPIRATORY Hx Respiratory Disorders: Yes Hx COPD: Yes - CARDIOVASCULAR Hx Cardio Disorders: Yes Hx Cardiac Cath: Yes Hx Pacemaker/Defib: Yes (Pacer for slow heart rate.) - NEURO Hx Neuro Disorders: Yes Hx Headaches: Yes Hx of Migraines: Yes (last one 09/2015) - GI Hx GI Disorders: Yes Hx Abdominal Pain: Yes Hx Diverticulitis: Yes Hx Reflux: Yes Hx Hiatal Hernia: Yes Hx Nausea/Vomiting: Yes Hx of Polyps: Yes Comment:: c/o constipation - Hx Genitourinary Disorders: Yes Hx Kidney Stones: Yes - ENDOCRINE Hx Endocrine Disorders: Yes Hx Thyroid Disease: Yes - MUSCULOSKELETAL Hx Musculoskeletal Disorders: Yes Hx Arthritis: Yes Hx Back Injury: Yes - PSYCH Hx Psych Problems: No - HEMATOLOGY/ONCOLOGY Hx Hematology/Oncology Disorders: Yes Hx Blood Transfusions: Yes Hx Blood Transfusion Reaction: No Family Medical History Any Significant Family History?: Yes Hx Diabetes: Grandparents Hx Heart Disease: Father, Mother, Brother/Sister Hx HTN: Mother, Brother/Sister Hx Seizures: Brother/Sister Physical Exam - General General Appearance: Alert, Oriented x3, Cooperative, Mild distress - Head Head exam: Normal inspection - Eye Eye exam: Normal appearance, PERRL Pupils: Normal accommodation - ENT ENT exam: Normal exam, Mucous membranes moist, Normal external ear exam, Normal orophraynx Ear exam: Normal external inspection. negative: External canal tenderness Nasal Exam: Normal inspection. negative: Discharge, Sinus tenderness Mouth exam: Normal external inspection, Tongue normal Teeth exam: Normal inspection. negative: Dental caries Throat exam: Normal inspection. negative: Tonsillar erythema, Tonsillar exudate - Neck Neck exam: Normal inspection, Full ROM. negative: Tenderness - Respiratory Respiratory exam: Normal lung sounds bilaterally. negative: Respiratory distress - Cardiovascular Cardiovascular Exam: Regular rate, Normal rhythm, Normal heart sounds - GI/Abdominal GI/Abdominal exam: Soft, Normal bowel sounds. negative: Tenderness - Rectal Rectal exam: Deferred - exam: Deferred - Extremities Extremities exam: Normal inspection, Full ROM, Normal capillary refill. negative: Tenderness - Back Back exam: Reports: Normal inspection, Full ROM. Denies: Muscle spasm, Rash noted, Tenderness - Neurological Neurological exam: Alert, CN II-XII intact, Normal gait, Oriented X3 - Psychiatric Psychiatric exam: Normal affect, Normal mood - Skin Skin exam: Dry, Intact, Normal color, Warm Course Vital Signs 12/07/17 10:32 Temperature 98.1 F Pulse Rate 60 Respiratory 20 Rate Blood Pressure 109/61 Pulse Ox 97 Medical Decision Making - Lab Data Result diagrams: 12/07/17 11:10 12/07/17 11:10 Lab Results 12/07/17 Range/Units 10:50 Urine Color Yellow Urine Appearance Clear Urine pH 6.0 (5.0-8.0) Ur Specific [place] 1.025 (1.002-1.030) Urine Protein Negative (NEGATIVE) Urine Glucose (UA) Negative (NEGATIVE) Urine Ketones Trace H (NEGATIVE) Urine Blood Negative (NEGATIVE) Urine Nitrite Negative (NEGATIVE) Urine Bilirubin Negative (NEGATIVE) Urine Urobilinogen 0.2 (0.20 - 1.00) E.U./dL Ur Leukocyte Esterase Negative (NEGATIVE) Disposition Disposition: Discharge Clinical Impression: Flank pain, Nausea Disposition: Home, Self-Care Condition: (1) Good Instructions: Low Back Strain (ED), Flank Pain (ED) Additional Instructions: follow up with family doctor. return sooner if worse. ice to sore areas. no lifting more then 5 lbs for 5 days Prescriptions: Cyclobenzaprine HCl [Flexeril] 10 mg PO TID #14 tablet Ibuprofen [Motrin 600Mg] 600 mg PO Q6H PRN #20 tablet PRN Reason: Pain - Moderate (5-7) Ondansetron [Zofran Odt] 4 mg PO Q8H #10 tab.rapdis Quality - Quality Measures Quality Measures: N/A - Blood Pressure Screening Does Patient Have Any of the Following: No Blood Pressure Classification: Normal BP Reading Systolic Measurement: 109 Diastolic Measurement: 61 Screening for High Blood Pressure: < Normal BP, F/U Not Required > [G8783]
--- NOTE | 2017-12-08 14:49 | CT SCAN REPORT ---
EXAM: CT OF THE ABDOMEN AND PELVIS HISTORY: LEFT FLANK PAIN. TECHNIQUE: CT of the abdomen and pelvis was performed without oral or IV contrast. This limits evaluation of bowel and solid visceral organs. Comparison: Prior CT from 03/11/17. FINDINGS: Limited evaluation of the lung bases shows bilateral breast implants. The osseous structures are grossly intact. Limited evaluation of the liver, spleen, adrenal glands, pancreas, and kidneys is unremarkable. Negative for urinary tract calculus or hydronephrosis. The gallbladder is present. Moderate atheromatous change. There is a large amount of stool in the colon. No gross evidence for bowel obstruction. No free air or free fluid. The urinary bladder is not distended, limiting its evaluation. Status post appendectomy, hysterectomy, and partial colectomy. IMPRESSION: 1. NEGATIVE FOR URINARY TRACT CALCULUS OR HYDRONEPHROSIS. 2. ABUNDANT STOOL IN THE COLON. POST SURGICAL CHANGE ABOVE. JOB NUMBER: [id number] MTDD
== END 2017-12-07 12:38 | disposition home or self-care (01) ==
LOC: ER 10:21
DX: R10.9 Unspecified abdominal pain (principal); K59.00 Constipation, unspecified; R11.0 Nausea; R35.0 Frequency of micturition; J44.9 Chronic obstructive pulmonary disease, unspecified; F17.210 Nicotine dependence, cigarettes, uncomplicated; Z87.442 Personal history of urinary calculi; Z95.0 Presence of cardiac pacemaker
CPT/HCPCS: 99284 ×2; 96374; 85025; 80048; 81003; 74176; J2405; J7030

== ENCOUNTER 2018-01-17 12:06 | Emergency (ER) | payer MEDICARE, OTHER ==
[2018-01-17] MEDS ORDERED: ASPIRIN 81 MG CHEWABLE TABLET PO ONE ×2 (12:27→12:32)
--- NOTE | 2018-01-17 12:27 | Emergency Department Record ---
History of Present Illness - General Chief Complaint: Shortness of breath Stated Complaint: SOB/CP Time Seen by Provider: 01/17/18 12:17 Source: Patient, Family Mode of Arrival: Wheelchair Limitations: No limitations - History of Present Illness Initial Comments: Pt with CP for 10 days "on and off" - painfree if still and painful with motion. 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 Pt has had issues with the pacer and pain with motions and there has been discussion of moving the pacer per the patient. She state when she does any activity she has pain to the left neck, shoulder and arm. She has associated seating and shortness of breath. Symptoms resolve with rest. She had cardiac cath at time of pacer and was told she was "clean". There is no hx of OR or Angina. She is a life time smoker without DM or HTN. At time of first exam she is still on the cart and pain free. Onset/Timin -: Days(s) Radiation: Jaw, Neck, Left arm Severity: Moderate Severity scale (1-10): 9 Quality: Aching Consistency: Intermittent Improves With: Upright position Worsens With: Exertion, Movement Context: Occurred during exertion Associated Symptoms: Diaphoresis, Nausea/vomiting Treatments Prior to Arrival: None - Related Data Home Oxygen Therapy: No Previous Rx's Medication Instructions Recorded Ibuprofen [Motrin 600Mg] 600 mg PO Q6H PRN #20 tablet 12/07/17 Ondansetron [Zofran Odt] 4 mg PO Q8H #10 tab.rapdis 12/07/17 Allergies Allergy/AdvReac Type Severity Reaction Status Date / Time morphine Allergy DIFFICULTY Verified 01/17/18 12:15 BREATHING Travel Screening - Travel/Exposure Within Last 30 Days Have you traveled within the last 30 days?: No - Travel/Exposure Within Last Year Have you traveled outside the [place] in the last year?: No - Additonal Travel Details Have you been exposed to anyone with a communicable illness?: No - Travel Symptoms Symptom Screening: None Review of Systems Constitutional: Denies: Chills, Fever Eyes: Denies: Eye discharge, Eye pain ENT: Denies: Congestion Respiratory: Reports: Dyspnea. Denies: Cough Cardiovascular: Reports: Chest pain, Dyspnea on exertion. Denies: Arrhythmia, Edema, Palpitations, Syncope Endocrine: Denies: Fatigue Gastrointestinal: Denies: Abdominal pain, Diarrhea Musculoskeletal: Denies: Arthralgia, Back pain Skin: Denies: Bruising, Rash Neurological: Denies: Abnormal gait, Headache, Seizure, Tremors Psychiatric: Reports: Anxiety Hematological/Lymphatic: Denies: Anemia Past Medical History - SOCIAL HISTORY Smoking Status: Current every day smoker Alcohol Use: None Drug Use: None - RESPIRATORY Hx Respiratory Disorders: Yes Hx COPD: Yes - CARDIOVASCULAR Hx Cardio Disorders: Yes Hx Cardiac Cath: Yes Hx Pacemaker/Defib: Yes (Pacer for slow heart rate.) Comment:: poked lead through heart wall 07/2017 - NEURO Hx Neuro Disorders: Yes Hx Headaches: Yes Hx of Migraines: Yes (last one 09/2015) - GI Hx GI Disorders: Yes Hx Abdominal Pain: Yes Hx Diverticulitis: Yes Hx Reflux: Yes Hx Hiatal Hernia: Yes Hx Nausea/Vomiting: Yes Hx of Polyps: Yes Comment:: c/o constipation - Hx Genitourinary Disorders: Yes Hx Kidney Stones: Yes - ENDOCRINE Hx Endocrine Disorders: Yes Hx Thyroid Disease: Yes - MUSCULOSKELETAL Hx Musculoskeletal Disorders: Yes Hx Arthritis: Yes Hx Back Injury: Yes - PSYCH Hx Psych Problems: No - HEMATOLOGY/ONCOLOGY Hx Hematology/Oncology Disorders: Yes Hx Blood Transfusions: Yes Hx Blood Transfusion Reaction: No Family Medical History Any Significant Family History?: Yes Hx Diabetes: Grandparents Hx Heart Disease: Father, Mother, Brother/Sister Hx HTN: Mother, Brother/Sister Hx Seizures: Brother/Sister Physical Exam - General General Appearance: Alert, Oriented x3, Cooperative, No acute distress Limitations: No limitations - Head Head exam: Atraumatic - Eye Eye exam: Normal appearance - ENT ENT exam: Normal exam Ear exam: Normal external inspection Nasal Exam: Normal inspection Mouth exam: Normal external inspection. negative: Drooling Teeth exam: Normal inspection Throat exam: Normal inspection - Neck Neck exam: Normal inspection, Full ROM. negative: Tenderness - Respiratory Respiratory exam: Rhonchi. negative: Rales, Stridor, Wheezes - Cardiovascular Cardiovascular Exam: Regular rate, Normal rhythm, Normal heart sounds - GI/Abdominal GI/Abdominal exam: Soft, Normal bowel sounds. negative: Guarding, Tenderness - Rectal Rectal exam: Deferred - exam: Deferred - Extremities Extremities exam: Normal inspection. negative: Calf tenderness, Pedal edema, Tenderness - Back Back exam: Reports: Normal inspection. Denies: CVA tenderness (R), CVA tenderness (L), Paraspinal tenderness - Neurological Neurological exam: Alert, CN II-XII intact, Normal gait, Oriented X3 - Psychiatric Psychiatric exam: Normal affect, Normal mood - Skin Skin exam: Normal color Type of lesion: negative: Rash Course - Reevaluation(s) Reevaluation #1: 01/17/18 13:30 Multiple rechecks without change in exam or symptoms. Family updated of results and course. At bedside. Son, sister in law 01/17/18 14:51 Discussed with ADELINE Han at Dr. Pina's office. All testes and studies reviewed. Echo normal. Plan for office visit in 2 days. Scheduled. RTEDSIW Medical Decision Making - Data Complexity MDM Data: Labs Ordered and/or Reviewed, X-Ray Ordered and/or Reviewed, EKG Ordered and/or Reviewed, Independent Visualization of Image, Tracing, or Specimen, Decision to Obtain Old Record, Review and Summary of Old Record Discussed (EKG unchanged from prior - paced. Old Chest CT and CXR rreports reviewed. [facility] Pacer Serial #[id number] ) - Lab Data Result diagrams: 01/17/18 12:00 01/17/18 12:00 - EKG Data -: EKG Interpreted by Me (Atrial paced with good capture at 60 BPM, no ST elevations or acute finding) EKG: No Acute Changes - Radiology Data Radiology results: Report reviewed, Image reviewed -: Radiology Exam Interpreted by Myself - Medical Decision Making Pt with normal labs including baseline Trop and ESR. Bedside limited Echo in progress without evidence of Pericardial effusion. VSS and resting without CP. Will discuss with patients bender machine. Disposition Disposition: Discharge Clinical Impression: Pain, chest wall, Pacemaker complications Disposition: Home, Self-Care Condition: (2) Stable Additional Instructions: Follow Up as scheduled with Dr. Burciaga JANUARY 19, 2018 at 2:30PM. WITHOUT FAIL. If symptoms worse or concern return to our ED. Forms: Patient Portal Access Quality - Quality Measures Quality Measures: N/A - Blood Pressure Screening Does Patient Have Any of the Following: No Blood Pressure Classification: Hypertensive Reading Systolic Measurement: 142 Diastolic Measurement: 67 Screening for High Blood Pressure: Patient Exclusion, Hx of HTN [[id number]]
[2018-01-17 12:39] LABS: BASO % 0.5 % (0-6); EOS % 0.9 % (0-6); GRAN % 63.7 % (47-80); HEMATOCRIT 40.6 % (35.0-47.0); HEMOGLOBIN 13.2 gm/dl (11.6-16.0); LYMPH % 27.1 % (16-45); MEAN CELL VOLUME 96.7 fl (81-97); MEAN CORPUSCULAR HEMOGLOBIN 31.4 pg (27-33); MEAN CORPUSCULAR HGB CONC 32.5 g/dl (32-36); MEAN PLATELET VOLUME 9.8 fl (7.4-10.4); MONO % 7.8 % (0-9); PLATELET COUNT 276 K/uL (130-400); RED CELL DISTRIBUTION WIDTH 14.5 % (11.5-14.5); WHITE BLOOD COUNT W/O DIFF 6.5 K/uL (4.2-12.2)
[2018-01-17 12:51] LABS: BLOOD UREA NITROGEN 17 mg/dL (8-23); CREATININE 0.7 mg/dL (0.5-0.9); EST GLOMERULAR FILTRATION RATE > 60 mL/min
[2018-01-17 12:52] LABS: TOTAL PROTEIN 6.7 g/dL (6.6-8.7)
[2018-01-17 12:54] LABS: GLUCOSE,RANDOM 103 mg/dL (74-109)
[2018-01-17 12:56] LABS: ALB/GLOB RATIO 1.6 (1.1-1.8); ALBUMIN 4.1 g/dL (4.0-5.0); ALKALINE PHOSPHATASE 69 U/L (35-104); ALT/SGPT 9 U/L (<33); AST/SGOT 17 U/L (10.0-35.0)
[2018-01-17 14:46] LABS: INR 0.9; PARTIAL THROMBOPLASTIN TIME 30.5 SECONDS (24.5-39.1); PROTHROMBIN TIME (PATIENT) 10.1 SECONDS (9.5-12.1)
--- NOTE | 2018-01-18 15:08 | RADIOLOGY REPORT ---
EXAM: CHEST, TWO VIEWS HISTORY: CHEST PAIN. TECHNIQUE: Frontal and lateral views of the chest were performed. Comparison: 10/07/17. FINDINGS: Left sided pacing device. The heart size is normal. The lung charlton are clear. The osseous structures are normal. IMPRESSION: NEGATIVE CHEST EXAMINATION. JOB NUMBER: [id number] MTDD
== END 2018-01-17 15:01 | disposition home or self-care (01) ==
LOC: ER 12:06
DX: T82.847A Pain due to cardiac prosthetic devices, implants and grafts, initial encounter (principal); R07.89 Other chest pain; R06.02 Shortness of breath; R11.2 Nausea with vomiting, unspecified; J44.9 Chronic obstructive pulmonary disease, unspecified; F17.210 Nicotine dependence, cigarettes, uncomplicated
CPT/HCPCS: 71046; 80053; 83880; 84484; 85025; 85610; 85651; 85730; 93005; 93010; 93306; 93307; 99284

== ENCOUNTER 2018-05-24 12:28 | Emergency (ER) | payer MEDICARE ==
--- NOTE | 2018-05-24 12:47 | Emergency Department Record ---
History of Present Illness - General Chief Complaint: Ankle/Foot Injury Stated Complaint: lt ankle pain/fall from standing Time Seen by Provider: 05/24/18 12:36 Mode of Arrival: Ambulatory - History of Present Illness Initial Comments: Pt hit left medial ankle on bed frame getting up in the dark last night. Pain at site. Able to walk and move. No other injury. No fall to the floor. No prior treatments. Onset/Timin -: Days(s) Severity: Moderate Severity scale (1-10): 8 Improves With: Immobilization Worsens With: Weight bearing Context: Fall - Related Data Home Medications Medication Instructions Recorded Confirmed Last Taken Naloxegol Oxalate [Movantik] 25 mg PO DAILY 05/24/18 05/24/18 Unknown Previous Rx's Medication Instructions Recorded Ibuprofen [Motrin 600Mg] 600 mg PO Q6H PRN #20 tablet 12/07/17 Ondansetron [Zofran Odt] 4 mg PO Q8H #10 tab.rapdis 12/07/17 Allergies Allergy/AdvReac Type Severity Reaction Status Date / Time morphine Allergy DIFFICULTY Verified 05/24/18 12:37 BREATHING Travel Screening - Travel/Exposure Within Last 30 Days Have you traveled within the last 30 days?: No Review of Systems Constitutional: Denies: Chills, Fever Eyes: Denies: Eye discharge, Eye pain ENT: Denies: Congestion Respiratory: Denies: Cough Cardiovascular: Denies: Arrhythmia, Palpitations Endocrine: Denies: Fatigue Gastrointestinal: Denies: Abdominal pain Musculoskeletal: Reports: As per HPI Skin: Denies: Bruising, Rash Neurological: Denies: Abnormal gait, Tremors Psychiatric: Denies: Anxiety Hematological/Lymphatic: Denies: Anemia Past Medical History - SOCIAL HISTORY Smoking Status: Current every day smoker Alcohol Use: None Drug Use: None - RESPIRATORY Hx Respiratory Disorders: Yes Hx COPD: Yes - CARDIOVASCULAR Hx Cardio Disorders: Yes Hx Cardiac Cath: Yes Hx Pacemaker/Defib: Yes (Pacer for slow heart rate.) Comment:: poked lead through heart wall 07/2017 - NEURO Hx Neuro Disorders: Yes Hx Headaches: Yes Hx of Migraines: Yes (last one 09/2015) - GI Hx GI Disorders: Yes Hx Abdominal Pain: Yes Hx Diverticulitis: Yes Hx Reflux: Yes Hx Hiatal Hernia: Yes Hx Nausea/Vomiting: Yes Hx of Polyps: Yes Comment:: c/o constipation - Hx Genitourinary Disorders: Yes Hx Kidney Stones: Yes - ENDOCRINE Hx Endocrine Disorders: Yes Hx Thyroid Disease: Yes - MUSCULOSKELETAL Hx Musculoskeletal Disorders: Yes Hx Arthritis: Yes Hx Back Injury: Yes - PSYCH Hx Psych Problems: No - HEMATOLOGY/ONCOLOGY Hx Hematology/Oncology Disorders: Yes Hx Blood Transfusions: Yes Hx Blood Transfusion Reaction: No Family Medical History Any Significant Family History?: Yes Hx Diabetes: Grandparents Hx Heart Disease: Father, Mother, Brother/Sister Hx HTN: Mother, Brother/Sister Hx Seizures: Brother/Sister Physical Exam - General General Appearance: Alert, Oriented x3, Cooperative, No acute distress - Head Head exam: Atraumatic - Eye Eye exam: PERRL - ENT ENT exam: Normal exam, Mucous membranes moist - Neck Neck exam: Normal inspection. negative: Tenderness - Respiratory Respiratory exam: Normal lung sounds bilaterally. negative: Wheezes - Cardiovascular Cardiovascular Exam: Regular rate, Normal rhythm - GI/Abdominal GI/Abdominal exam: Soft. negative: Tenderness - Extremities Extremities exam: Full ROM, Normal capillary refill (medial left ankle over distal tibia tender anterior. No pain posterior medial malleolus. No lateral pain to ankle. Gait stable. ), Tenderness - Neurological Neurological exam: Alert, Normal gait, Oriented X3 - Psychiatric Psychiatric exam: Normal affect, Normal mood - Skin Skin exam: Normal color. negative: Rash Course Vital Signs 05/24/18 12:33 Temperature 98.2 F Pulse Rate 71 Respiratory 20 Rate Blood Pressure 138/79 Pulse Ox 98 - Reevaluation(s) Reevaluation #1: 05/24/18 12:50 Pt with medial ankle pain. No clinical evidence of fracture. Weight bears without issue. Discussed pro and con of xray. agrees with no Xray at this time. Home with continued use of her Motrin TID and will ICE and rest the area. Disposition Disposition: Discharge Clinical Impression: Contusion of ankle, left Disposition: Home, Self-Care Condition: (1) Good Instructions: Contusion in Adults (ED) Additional Instructions: Continue your Motrin as instructed with food. Ice Rest Return as needed Forms: Patient Portal Access Time of Disposition: 12:47 Quality - Quality Measures Quality Measures: N/A - Blood Pressure Screening Does Patient Have Any of the Following: No Blood Pressure Classification: Pre-Hypertensive BP Reading Systolic Measurement: 138 Diastolic Measurement: 79 Screening for High Blood Pressure: < Pre-Hypertensive BP, F/U Documented > [ [id number]] Pre-Hypertensive Follow-up Interventions: Follow-up with rescreen every year.
== END 2018-05-24 12:58 | disposition home or self-care (01) ==
LOC: ER 12:28
DX: S90.02XA Contusion of left ankle, initial encounter (principal); W22.09XA Striking against other stationary object, initial encounter; Y92.003 Bedroom of unspecified non-institutional (private) residence as the place of occurrence of the external cause; F17.210 Nicotine dependence, cigarettes, uncomplicated; J44.9 Chronic obstructive pulmonary disease, unspecified
CPT/HCPCS: 99282

== ENCOUNTER 2019-05-01 07:36 | Day surgery (SDC) | payer MEDICARE ==
[~2019-05-01 07:36] MED LIST: ACETAMINOPHEN 1,000 MG/100 ML BTL IVPB ONE; FAMOTIDINE 20MG TABLET PO ONE; MECLIZINE 25 MG TABLET PO ONE; METOCLOPRAMIDE 10 MG TABLET PO ONE
[2019-05-01] MEDS ORDERED: KETOROLAC 30 MG/ML VIAL IVP ONE (07:37)
[2019-05-01] MEDS ORDERED: LIDOCAINE 2% MDV (20MG/ML) 20ML VIAL IV ONE (07:37)
[2019-05-01] MEDS ORDERED: MIDAZOLAM HCL 2MG/2ML VIAL IV ONE (07:37)
[2019-05-01] MEDS ORDERED: SUGAMMADEX SODIUM 200 MG/2 ML VIAL IV ONE (07:37)
[2019-05-01] MEDS ORDERED: ATROPINE SULFATE 0.4 MG/ML 20ML IVP ONE (07:37)
[2019-05-01] MEDS ORDERED: SEVOFLURANE 250 ML INH ONE (07:37)
[2019-05-01] MEDS ORDERED: ROCURONIUM BROMIDE 50MG/5ML VIAL IV ONE (07:37)
[2019-05-01] MEDS ORDERED: DEXAMETHASONE 4 MG/ML 1ML VIAL IVP ONE (07:37)
[2019-05-01] MEDS ORDERED: FENTANYL PF 100MCG/2ML VIAL IV ONE (07:37)
[2019-05-01] MEDS ORDERED: GLYCOPYRROLATE 0.2 MG/ML ML IV ONE (07:37)
[2019-05-01] MEDS ORDERED: PROPOFOL 10 MG/ML VIAL IV ONE (07:37)
[2019-05-01] MEDS ORDERED: SUCCINYLCHOLINE 20 MG/ML 10ML IVP ONE (07:37)
[2019-05-01] MEDS ORDERED: ONDANSETRON HCL IV 4 MG/2 ML VIAL IVP ONE (07:37)
[2019-05-01] MEDS ORDERED: RINGERS SOLUTION,LACTATED 1,000 ML IV ONE ×2 (08:25→10:36)
[2019-05-01] MEDS ORDERED: BUPIVACAINE 0.25% W/EPI MPF 30ML VIAL SQ ONE (09:39)
[2019-05-01] MEDS ORDERED: HYDROMORPHONE HCL 2 MG/ML VIAL IVP ONE (10:23)
[2019-05-01] MEDS ORDERED: HYDROCODONE/APAP 5/325MG TABLET PO ONE (10:48)
--- NOTE | 2019-05-02 06:10 | Operative Note ---
DATE OF SURGERY: 05/01/2019 SURGEON: Balta Ribera DO PREOPERATIVE DIAGNOSIS: Cholelithiasis with chronic cholecystitis. POSTOPERATIVE DIAGNOSIS: Cholelithiasis with chronic cholecystitis. OPERATION: Laparoscopic cholecystectomy. INDICATION: The patient is a 68-year-old female who came to the office with ongoing chronic abdominal pain. She had stones noted on imaging. We did discuss cholecystectomy versus medical management. She desired surgical intervention. Risks include bleeding, infection, acute or chronic pain, recurrence, nonresolution of her symptoms. She has undergone a couple prior laparotomies; therefore, we did discuss increased risk of intestinal injury or trocar injury. She understood this fully. PROCEDURE: Thereafter, consent was signed and questions answered. She was taken to the operating room and placed in a supine position. General anesthesia was administered per the department of anesthesia. The patient's abdomen was prepped and draped in the usual sterile fashion. I did elect to use a left upper quadrant Visiport secondary to prior laparotomies. All abdominal layers were traversed under direct visualization. Adequate pneumoperitoneum was established. midline was fairly densely adherent; however, the right side was completely clear. Therefore, two 5 mm right subcostal ports and a 5 mm epigastric port were placed. I did switch to a 5 mm lens and placed an additional 5 mm port off to the right of center at the level of her navel. We switched the camera to this port. This gave us excellent visualization. The gallbladder was retracted in a cephalad and lateral direction opening up the angle of Calot. The hepatocystic triangle was thoroughly dissected out. There was no aberrant anatomy, no posterior ductal structures. Of note, this was somewhat thickened and she did have omental adhesions anteriorly. We did take down the distal half of the gallbladder from the cystic plate elongating our retroductal window. The cystic duct and cystic artery were clearly identified. We had an excellent critical view of safety. Each one was doubly clipped and cut in a standard fashion. Gallbladder was taken off the liver bed. This was placed in an EndoCatch bag and brought out through the left subcostal Visiport. Right upper quadrant was rechecked and found to be hemostatic. No bleeding. No bile leaking. No bowel injury noted. The bowel was inspected around the port sites and noted to be free of any injury. The patient was leveled out. The pneumoperitoneum was released. All ports were removed. The fascia was closed with 0 Vicryl in a [id number] fashion. The skin at all ports was closed with 4-0 Vicryl. The patient was taken to the recovery room in stable condition. FINDINGS AT THE TIME OF SURGERY: Chronic cholecystitis. Final pathology pending. [facility]
== END 2019-05-01 11:09 | disposition home or self-care (01) ==
LOC: SUR 07:36
PROVIDERS: ATTEND Surgery
DX: K80.10 Calculus of gallbladder with chronic cholecystitis without obstruction (principal); R00.1 Bradycardia, unspecified; E78.00 Pure hypercholesterolemia, unspecified; E03.9 Hypothyroidism, unspecified; K21.9 Gastro-esophageal reflux disease without esophagitis; F17.210 Nicotine dependence, cigarettes, uncomplicated
CPT/HCPCS: J0330; J1885; J2405; J3490; J7120

== ENCOUNTER 2019-05-03 21:12 | Emergency (ER) | payer MEDICARE ==
[2019-05-03] MEDS ORDERED: ACETAMINOPHEN 1,000 MG/100 ML BTL IVPB ONE (21:46)
[2019-05-03] MEDS ORDERED: SUCRALFATE 1 G/10 ML UD PO ONE (21:46)
--- NOTE | 2019-05-03 21:48 | Emergency Department Record ---
History of Present Illness - General Chief Complaint: Abdominal Pain Stated Complaint: FOLLOW UP FROM GALL BLADDER SURGERY Time Seen by Provider: 05/03/19 21:24 Source: Patient Mode of Arrival: Ambulatory Limitations: No limitations - History of Present Illness Initial Comments: The patient is here due to an 8 hour hx of epigastric aching pain with nausea and sweating on and off. She also has had some chest tightness at times but that has resolved now. The patient did just have her gallbladder removed 2 days ago here at [facility] by Dr. Ribera. The patient does have a hx of sinus berkley and also no hx of any CAD with a neg heart cath just less than 2 years ago. MD Complaint: Abdominal pain Onset/Timin -: Hour(s) Radiation: Epigastric Severity scale (1-10): 4 Quality: Sharp Consistency: Intermittent Improves With: Nothing Worsens With: Nothing Context: Recent surgery/procedure Associated Symptoms: Nausea Treatments Prior to Arrival: Prescription analgesics - Related Data Patient : No Hx Age of Menopause: 42 Home Medications Medication Instructions Recorded Confirmed Last Taken Naloxegol Oxalate [Movantik] 1 tab PO DAILY 05/03/19 05/03/19 Unknown Rosuvastatin Calcium [Crestor] 1 tab PO DAILY 05/03/19 05/03/19 Unknown Allergies Allergy/AdvReac Type Severity Reaction Status Date / Time morphine Allergy Severe DIFFICULTY Verified 05/03/19 21:36 BREATHING Travel Screening - Travel/Exposure Within Last 30 Days Have you traveled within the last 30 days?: No - Travel/Exposure Within Last Year Have you traveled outside the [place] in the last year?: No - Additonal Travel Details Have you been exposed to anyone with a communicable illness?: No - Travel Symptoms Symptom Screening: None Review of Systems Constitutional: Denies: Chills, Fever Eyes: Denies: Eye discharge ENT: Denies: Congestion Respiratory: Denies: Cough, Dyspnea Cardiovascular: Denies: Arrhythmia Endocrine: Reports: Fatigue Gastrointestinal: Reports: Nausea. Denies: Diarrhea Genitourinary: Denies: Dysuria Musculoskeletal: Denies: Arthralgia Skin: Denies: Bruising Past Medical History - SOCIAL HISTORY Smoking Status: Current every day smoker Alcohol Use: None Drug Use: None - RESPIRATORY Hx Respiratory Disorders: Yes Hx Bronchitis: Yes (not recent) Hx Pneumonia: Yes (not recent) - CARDIOVASCULAR Hx Cardio Disorders: Yes Hx Cardiac Cath: Yes Hx Hypotension: Yes Hx Pacemaker/Defib: Yes (just [id number] runs normally high 40s to mid 50) - NEURO Hx Neuro Disorders: Yes Hx of Migraines: Yes (controlled with botox) - GI Hx GI Disorders: Yes Hx Abdominal Pain: Yes Hx Diverticulitis: Yes (partial removal) Hx Reflux: Yes Hx Hiatal Hernia: Yes (reflux) Hx Nausea/Vomiting: Yes (gallstones) Comment:: "twisted colon" hx-had portion removed - Hx Genitourinary Disorders: Yes Hx Bladder Problem: Yes (bladder drops-sees urologist) Hx Kidney Stones: Yes (now) - ENDOCRINE Hx Endocrine Disorders: Yes Hx Thyroid Disease: Yes (on supplement) - MUSCULOSKELETAL Hx Musculoskeletal Disorders: Yes Hx Arthritis: Yes - PSYCH Hx Psych Problems: No - HEMATOLOGY/ONCOLOGY Hx Hematology/Oncology Disorders: Yes Hx Cancer: Yes (skin CA from back) Family Medical History Any Significant Family History?: Yes Hx Alcohol Use: Father Hx Cancer: Brother/Sister *Cancer Comment: sister Hx Dementia: Father Hx Depression: Mother, Brother/Sister Hx Diabetes: Grandparents Hx Heart Disease: Father, Mother, Brother/Sister Hx HTN: Father, Mother Hx Resp Disorders: Brother/Sister Hx Seizures: Brother/Sister Physical Exam - General General Appearance: Alert, Oriented x3, Cooperative, No acute distress - Head Head exam: Atraumatic, Normocephalic, Normal inspection - Eye Eye exam: Normal appearance, PERRL, EOMI - ENT Throat exam: Normal inspection. negative: Tonsillar erythema, Tonsillar exudate - Neck Neck exam: Normal inspection, Full ROM. negative: Tenderness - Respiratory Respiratory exam: Normal lung sounds bilaterally. negative: Respiratory distress - Cardiovascular Cardiovascular Exam: Regular rate, Normal rhythm, Normal heart sounds - GI/Abdominal GI/Abdominal exam: Soft, Normal bowel sounds, Tenderness (There is mild upper abdominal tenderness.). negative: Rebound, Rigid - Extremities Extremities exam: Normal inspection, Full ROM, Normal capillary refill. negative: Tenderness - Neurological Neurological exam: Alert, Normal gait. negative: Abnormal gait, Motor sensory deficit - Psychiatric Psychiatric exam: negative: Anxious Course Vital Signs 05/03/19 21:22 Temperature 97.5 F L Pulse Rate [ 52 L Pulse Ox Probe] Respiratory 20 Rate Blood Pressure 143/60 [Left Arm] Pulse Ox 97 - Reevaluation(s) Reevaluation #1: The patient is doing very well at this time and feels back to normal. She denies any chest pain, SOB, sweating or AP. I did discuss the normal lab tests, CT and EKG. Due to the nature of the patient's complaints and hx of diaphoresis I did recommend a short stay admission to [facility]. The patient is declining that recommendation and would like to go home. I then did explain the risks of leaving which include leaving and going home and having an AL, stroke, becoming disabled and even . The patient fully understands and accepts the risks and understands we will be happy to re-evaluate her at any time for recheck. She also is instructed to see her Acidizer GENA. 05/03/19 23:13 Reevaluation #2: 2nd EKG: Sinus berkley at 43, Neg ST-T changes. No change compared to old. 05/03/19 23:20 Medical Decision Making - Data Complexity MDM Data: Labs Ordered and/or Reviewed, X-Ray Ordered and/or Reviewed, EKG Ordered and/or Reviewed - Lab Data Result diagrams: 05/03/19 21:30 05/03/19 21:30 - EKG Data -: EKG Interpreted by Me EKG: No Acute Changes, Unchanged From Previous - Radiology Data Radiology results: Report reviewed (Abd CT: neg for any acute process.) Disposition Disposition: Discharge Clinical Impression: Chest pain, atypical Disposition: Against Medical Advice Condition: (2) Stable Instructions: Abdominal Pain (ED) Additional Instructions: Please continue your regular medicines and please see your Acidizer GENA. Please return to the ER for any worsening symptoms. Forms: Patient Portal Access Time of Disposition: 23:16 Quality - Quality Measures Quality Measures: N/A - Blood Pressure Screening View Details: Yes Does Patient Have Any of the Following: No Blood Pressure Classification: Normal BP Reading Systolic Measurement: 106 Diastolic Measurement: 51 Screening for High Blood Pressure: < Normal BP, F/U Not Required > [G8783]
[2019-05-03 21:54] LABS: ABSOLUTE NEUTROPHIL COUNT 5.37; BASO % 0.3 % (0-6); EOS % 1.7 % (0-6); GRAN % 59.8 % (47-80); HEMATOCRIT 40.7 % (35.0-47.0); LYMPH % 29.9 % (16-45); MEAN CELL VOLUME 97.1 fl (81-97); MEAN CORPUSCULAR HGB CONC 31.9 g/dl (32-36); MEAN PLATELET VOLUME 10.1 fl (7.4-10.4); MONO % 8.3 % (0-9); PLATELET COUNT 246 K/uL (130-400); RED BLOOD COUNT 4.19 M/uL (3.80-5.40); RED CELL DISTRIBUTION WIDTH 13.8 % (11.5-14.5)
[2019-05-03 22:05] LABS: PARTIAL THROMBOPLASTIN TIME 24.8 SECONDS (24.5-39.1); PROTHROMBIN TIME (PATIENT) 10.2 SECONDS (9.5-12.1)
[2019-05-03 22:08] LABS: BLOOD UREA NITROGEN 11 mg/dL (8-23); CREATININE 0.7 mg/dL (0.5-0.9); EST GLOMERULAR FILTRATION RATE > 60 mL/min; TOTAL PROTEIN 6.6 g/dL (6.6-8.7)
[2019-05-03 22:10] LABS: GLUCOSE,RANDOM 104 mg/dL (74-109)
[2019-05-03 22:13] LABS: ALBUMIN 4.1 g/dL (4.0-5.0); ALKALINE PHOSPHATASE 67 U/L (35-104); ALT/SGPT 11 U/L (<33); AST/SGOT 19 U/L (10.0-35.0); CREATINE PHOSPHOKINASE 84 U/L (26-192)
[2019-05-03 22:16] LABS: BILIRUBIN,DIRECT < 0.2 mg/dL (0-0.3)
--- NOTE | 2019-05-03 23:03 | CT SCAN REPORT ---
EXAMINATION: CT Abdomen and Pelvis without IV Contrast EXAM DATE: 05/03/2019 10:29 PM TECHNIQUE: Standard protocol CT imaging of the abdomen and pelvis was performed without intravenous c ontrast. INDICATION: AP S/P surgery. Gallbladder surgery last Wednesday. COMPARISON: Abdomen pelvis CT 12/16/2018 ENCOUNTER: Not applicable CT ABDOMEN AND PELVIS FINDINGS: Lung Bases: Included extent of the lung bases are clear. Hepatobiliary: The liver has a normal size with a smooth surface. Gallbladder is absent. Pancreas: The pancreas is normal. Spleen: The spleen is not enlarged. Adrenals: The adrenal glands are normal. Gastrointestinal: The stomach and small bowel are normal with no obstruction or inflammation. The akua endix is absent. Small to moderate fecal material throughout the colon without wall thickening or adj acent inflammation. Reproductive Organs: Uterus is absent. Lymphatic System: There is no adenopathy within the abdomen or pelvis. Vasculature: Normal caliber abdominal aorta moderate aortoiliac calcification. Peritoneum: No free fluid, free air, or inflammation Assessment of the solid organs, soft tissues, and vascular structures is overall limited on noncontra st imaging, IMPRESSION: 1. Status post cholecystectomy with no air or fluid in the gallbladder fossa. No acute process of th e abdomen or pelvis. 2. No intestinal obstruction. Small to moderate fecal material throughout the colon. Dictated by: Gerry Aaron MD on 05/03/2019 10:57 PM. .
== END 2019-05-03 23:35 | disposition left against medical advice (07) ==
LOC: ER 21:12
DX: R07.89 Other chest pain (principal); R10.13 Epigastric pain; R11.0 Nausea; F17.210 Nicotine dependence, cigarettes, uncomplicated; Z90.49 Acquired absence of other specified parts of digestive tract
CPT/HCPCS: 74176; 80048; 80076; 82550; 82553; 83690; 84484; 85025; 85610; 85730; 93005; 93010; 96365; 99285